=== PATIENT | male | born 1995 | race African-American/Black ===

== ENCOUNTER 2020-11-19 16:05 | Emergency (ER) | payer MEDICAID ==
[~2020-11-19] VITALS: Ht 180.3 cm; Wt 79.5 kg
[2020-11-19] MEDS ORDERED: PERTUSS(ACELL),DIPH,TET VAC/PF 0.5 ML SYRINGE IM. ONE (17:15)
[2020-11-19 17:23] VITALS: BP 147/79
== END 2020-11-19 18:26 | disposition home or self-care (01) ==
LOC: EMS 16:07
DX: S61.211A Laceration without foreign body of left index finger without damage to nail, initial encounter (principal); F17.210 Nicotine dependence, cigarettes, uncomplicated; F12.90 Cannabis use, unspecified, uncomplicated; W45.8XXA Other foreign body or object entering through skin, initial encounter; Y93.89 Activity, other specified; Y92.89 Other specified places as the place of occurrence of the external cause; Y99.8 Other external cause status
CPT/HCPCS: 12001; 90471; 90715; 99283